=== PATIENT | male | born 1955 | race Caucasian/White ===

== ENCOUNTER 2016-11-25 18:12 | Inpatient (IN) ==
[2016-11-25 18:55] LABS: Basophils % 0.3 %; Eosinophils # 0.1 K/mcL (0.0-0.6); Eosinophils % 1.1 %; Hematocrit 35.4 % (37.5-50.1); Hemoglobin 12.3 g/dL (12.9-16.9); Immature Granulocytes % 0.1 % (0-4); Lymphocytes # 1.9 K/mcL (0.6-4.6); Lymphocytes % 25.9 %; Mean Corpuscular HGB Conc 34.7 g/dL (31.6-35.5); Mean Corpuscular Hemoglobin 29.6 pg (28.0-33.3); Mean Corpuscular Volume 85.3 fL (83.0-100.0); Mean Platelet Volume 9.4 fL (9.4-12.4); Monocytes # 0.8 K/mcL (0.0-1.3); Monocytes % 10.4 %; Neutrophils # 4.7 K/mcL (1.6-8.9); Platelet Count 310 K/mcL (140-400); Red Blood Count 4.15 M/mcL (4.19-5.50); Red Cell Distribution Width 12.6 % (11.5-14.5); Segmented Neutrophils % 62.2 %
[2016-11-25 19:12] LABS: Alanine Aminotransferase 52 Units/L (0-55); Albumin 4.4 g/dL (3.5-5.0); Albumin/Globulin Ratio 1.3 (1.1-2.2); Alkaline Phosphatase 68 Units/L (38-126); Aspartate Amino Transferase 28 Units/L (5-34); BUN/Creatinine Ratio 23 (6-26); Bilirubin,Direct 0.3 mg/dL (0.0-0.5); Bilirubin,Indirect 0.4 mg/dL (0.0-1.2); Bilirubin,Total 0.7 mg/dL (0.2-1.2); Blood Urea Nitrogen 23 mg/dL (8-26); Calcium 9.6 mg/dL (8.6-10.8); Carbon Dioxide 21 mEq/L (19-29); Chloride 112 mEq/L (98-109); Globulin 3.4 g/dL (2.4-3.5); Glucose 121 mg/dL (70-99); Lipase 609 Units/L (8-78); Osmolality,Calculated 303 (280-300); Potassium 3.5 mEq/L (3.5-4.5); Sodium 144 mEq/L (136-145); Total Protein 7.8 g/dL (6.0-8.3); eGFR For African Americans > 60 (> 60); eGFR For Non-African Americans > 60 (> 60)
[2016-11-25 19:13] LABS: Acetaminophen < 1.0 mcg/mL (10-30); Ethanol < 10 mg/dL (0-10); Salicylate < 5.0 mg/dL (15-30)
[2016-11-25 19:16] LABS: INR 1.1; Prothrombin Time 12.3 Seconds (9.4-12.1)
[2016-11-25 19:19] LABS: Activated Partial Thrombo Time 32.5 Seconds (26.0-36.0)
[2016-11-25] MEDS ORDERED: 0.9 % Sodium Chloride 1,000 ML IVC ONE (19:51)
--- NOTE | 2016-11-25 20:09 | Emergency Department Note ---
Disposition Clinical Impression: Drug abuse Pancreatitis Qualifiers: Chronicity: acute Pancreatitis type: unspecified pancreatitis type Acute pancreatitis complication: unspecified Qualified Code(s): K85.90 - Acute pancreatitis without necrosis or infection, unspecified Altered mental status, unspecified Qualifiers: Altered mental status type: delirium Qualified Code(s): R41.0 - Disorientation , unspecified Disposition: Admitted As Inpatient Condition: Fair Referrals: NONE,PCP [Primary Care Provider] - Forms: ED Satisfaction Letter, Work/School Release Time of Disposition: 22:30 General Adult HPI - General Chief complaint: ED Abdominal Pain Stated complaint: "my aneurysm is bursting again" Time Seen by Provider: 11/25/16 18:26 Source: patient Limitations: no limitations - History of Present Illness HPI Narrative: Mr. Taylor is a 61 y/o M who is a poor historian presents to the ED complaining of "his aneurysm rupturing". Patient states that he had pain left of his umbilicus that started today while walking. He describes the pain as feeling like his aneurysm is ruptured repeatedly. Patient then start telling stories about events in 1971. The patient avoid answering any of my questions regarding his abdominal pain. He is alert and oriented to place and time, but he does not answer any of my history and physical questions. However, the patient denies any fever, chest pain, shortness of breath, constipation, diarrhea, numbness and tingling, and any weaknesses. Pain Scale: 10 - Related Data Home Medications Medication Instructions Recorded Confirmed Aspirin 81 mg PO DAILY 02/25/15 11/03/15 Atorvastatin [Lipitor] 20 mg PO DAILY 02/25/15 11/03/15 Benztropine [Cogentin] 1 mg PO TID 02/25/15 11/03/15 Cholecalciferol (Vitamin D3) 1,000 unit PO DAILY 02/25/15 11/03/15 [Vitamin D3] Cyclobenzaprine HCl 5 mg PO BID 02/25/15 11/03/15 Docusate [Colace] 100 mg PO BID 02/25/15 11/03/15 Gabapentin [Neurontin] 800 mg PO TID 02/25/15 11/03/15 Levothyroxine [Synthroid] 50 mcg PO DAILY 02/25/15 11/03/15 [place] Carbonate 300 mg PO HS 02/25/15 11/03/15 OLANZapine [Zyprexa] 20 mg PO HS 02/25/15 11/03/15 Propranolol [Inderal] 20 mg PO BID 02/25/15 11/03/15 Carboxymethylcellulose Sodium 1 drop OP QID 11/02/15 11/03/15 [Refresh Celluvisc] Lisinopril-HCTZ 20-12.5 [Prinzide 2 tab PO DAILY 11/02/15 11/03/15 20-12.5] Omeprazole [PriLOSEC] 20 mg PO DAILY 11/02/15 11/03/15 Polyethylene Glycol 3350 [MiraLAX] 17 gm PO DAILY 11/02/15 11/03/15 Psyllium [Metamucil Fiber Singles 2 unit PO DAILY 11/02/15 11/02/15 Packet] Divalproex (12 HR) [Depakote (12 500 mg PO QAM 11/03/15 11/03/15 HR)] Divalproex (12 HR) [Depakote (12 750 mg PO QPM 11/03/15 11/03/15 HR)] Previous Rx's Medication Instructions Recorded Ciprofloxacin HCl [Cipro] 500 mg PO BID #14 tab 11/04/15 Nabumetone [Relafen] 500 mg PO BID tablet 11/04/15 metroNIDAZOLE [Flagyl] 500 mg PO TID #21 tablet 11/04/15 traMADol [Ultram] 100 mg PO TID tablet 11/04/15 Cyclobenzaprine [Flexeril] 10 mg PO TID PRN #10 tablet 01/01/16 Meloxicam [Mobic] 7.5 mg PO BID PRN #10 tablet 01/01/16 Diclofenac Sodium [Voltaren] 50 mg PO Q8HR #30 tablet. 03/27/16 Tramadol HCl [Ultram] 50 mg PO Q6HR PRN #20 tab 03/27/16 predniSONE [PredniSONE] 60 mg PO DAILY 5 Days tablet 03/27/16 Benzonatate [Tessalon] 100 mg PO TID PRN #15 capsule 04/14/16 Ciprofloxacin HCl [Cipro] 500 mg PO BID #20 tablet 09/04/16 metroNIDAZOLE [Flagyl] 500 mg PO TID #30 tablet 09/04/16 HYDROcodone/Acet 5/325 mg [[place] 1 tab PO Q6H PRN #6 tab 09/05/16 5-325 mg] Allergies Allergy/AdvReac Type Severity Reaction Status Date / Time No Known Allergies Allergy Verified 11/25/16 18:18 Constitutional: Denies: fever, chills, weakness Cardiovascular: Denies: chest pain, palpitations, dyspnea on exertion, edema, syncope Respiratory: Denies: cough, dyspnea, wheezes, hemoptysis, stridor Gastrointestinal: Reports: abdominal pain Genitourinary: Denies: urgency, dysuria, frequency, hematuria Musculoskeletal: Denies: back pain, neck pain, arthralgia, myalgia Neurological: Denies: headache, weakness, numbness, paresthesias, confusion, abnormal gait, vertigo Past Medical History - Past Medical History Medical history: Reports: aortic aneurysm, hepatitis, hyperlipidemia, hypertension, thyroid disease, other Surgical history: Reports: no surgical history Psychiatric history: Reports: schizophrenia, other - Social History Smoking Status: Current every day smoker Smokeless Tobacco Status: No Alcohol use: Reports: rarely Drug use: Reports: none Physical Exam - General Limitations: no limitations General appearance: alert, anxious - Head Head exam: atraumatic, normocephalic, normal inspection - Neck Neck exam: Present: normal inspection, full ROM, trachea midline - Chest Chest inspection: Present: normal inspection, symmetric chest wall rise - Respiratory Respiratory exam: Present: normal lung sounds bilaterally. Absent: respiratory distress, wheezes, stridor - Cardiovascular Cardiovascular exam: Present: regular rate, normal rhythm, normal heart sounds. Absent: rubs, gallop, clicks - Abdominal Exam Abdominal exam: Present: soft, Non-Tender, normal bowel sounds. Absent: distention, guarding, rebound, rigidity, pulsatile mass - Expanded Lower Extremity Exam Neurovascular/Tendon exam: Present: normal capillary refill. Absent: pulse deficit, motor deficit, sensory deficit - Back Exam Back exam: Present: normal inspection. Absent: tenderness, CVA tenderness (R), CVA tenderness (L), paraspinal tenderness, vertebral tenderness - Neurological Exam Neurological exam: Present: alert, oriented X3 Course - Consultations Consultation #1: Spoke with Dr. Dueñas. He accepts the patient. Time: 22:27 Vital Signs Temperature 98.4 F 11/25/16 18:14 Pulse Rate 96 11/25/16 18:14 Respiratory Rate 20 11/25/16 18:14 Blood Pressure 163/98 11/25/16 18:14 O2 Sat by Pulse Oximetry 98 11/25/16 18:14 Temperature 98.4 F 11/25/16 18:14 Pulse Rate 96 11/25/16 18:14 Respiratory Rate 20 11/25/16 18:14 Blood Pressure 163/98 11/25/16 18:14 O2 Sat by Pulse Oximetry 98 11/25/16 18:14 Oxygen Delivery Oxygen Delivery Room Air Medical Decision Making - MDM Narrative Medical decision making narrative: The patient is unable to answer my history and physical questions regarding his abdominal pain complaints continue to have conversations about events that occurred in 1971 and accidents that occur 3 to 5 years ago. Plan is to order a Psych clearance. CBC reviewed and showed low hemoglobin but it is unchanged from his baseline. CTA of abdomen, pelvis, and chest are pending. Labs reviewed and it showed elevated lipase. Plan to admit the patient for pancreatitis. Urine tox screen was positive for cocaine and marijuana. 22:27 - Spoke with Dr. Dueñas and he accepts the patient. - Lab Data Lab results reviewed: Yes I reviewed the patient's lab results. Result diagrams: 11/25/16 18:47 11/25/16 18:47 Lab Results 11/25/16 11/25/16 11/25/16 Range/Units 18:47 18:47 18:47 WBC 7.5 (4.3-11.1) K/mcL RBC 4.15 L (4.19-5.50) M/mcL Hgb 12.3 L (12.9-16.9) g/dL Hct 35.4 L (37.5-50.1) % MCV 85.3 (83.0-100.0) fL MCH 29.6 (28.0-33.3) pg MCHC 34.7 (31.6-35.5) g/dL RDW 12.6 (11.5-14.5) % Plt Count 310 (140-400) K/mcL MPV 9.4 (9.4-12.4) fL Immature Gran % 0.1 (0-4) % Seg Neutrophils % 62.2 % Lymphocytes % 25.9 % Monocytes % 10.4 % Eosinophils % 1.1 % Basophils % 0.3 % Neutrophils # 4.7 (1.6-8.9) K/mcL Lymphocytes # 1.9 (0.6-4.6) K/mcL Monocytes # 0.8 (0.0-1.3) K/mcL Eosinophils # 0.1 (0.0-0.6) K/mcL Basophils # 0.0 (0.0-0.2) K/mcL PT 12.3 H (9.4-12.1) Seconds INR 1.1 APTT 32.5 (26.0-36.0) Seconds Sodium 144 (136-145) mEq/L Potassium 3.5 (3.5-4.5) mEq/L Chloride 112 H (98-109) mEq/L Carbon Dioxide 21 (19-29) mEq/L BUN 23 (8-26) mg/dL Creatinine 1.02 (0.72-1.25) mg/dL Est GFR ( Amer) > 60 (> 60) Est GFR (Non-Af Amer) > 60 (> 60) BUN/Creatinine Ratio 23 (6-26) Glucose 121 H (70-99) mg/dL Calculated Osmolality 303 H (280-300) Calcium 9.6 (8.6-10.8) mg/dL Total Bilirubin 0.7 (0.2-1.2) mg/dL Direct Bilirubin 0.3 (0.0-0.5) mg/dL Indirect Bilirubin 0.4 (0.0-1.2) mg/dL AST 28 (5-34) Units/L ALT 52 (0-55) Units/L Alkaline Phosphatase 68 (38-126) Units/L Serum Total Protein 7.8 (6.0-8.3) g/dL Albumin 4.4 (3.5-5.0) g/dL Globulin 3.4 (2.4-3.5) g/dL Albumin/Globulin Ratio 1.3 (1.1-2.2) Lipase 609 H (8-78) Units/L Urine Color (Yellow) Urine Clarity (Clear) Urine pH (5.0-8.0) pH Units Ur Specific [place] (1.010-1.025) Urine Protein (Neg-Trace) mg/dL Urine Glucose (UA) (Normal) mg/dL Urine Ketones (Negative) mg/dL Urine Blood (Negative) Urine Nitrite (Negative) Urine Bilirubin (Negative) Urine Urobilinogen (Normal) mg/dL Ur Leukocyte Esterase (Negative) Ur Culture Indicated? (NO) Salicylates < 5.0 L (15-30) mg/dL Urine Opiates Screen (Tlewbw=106) ng/mL Acetaminophen < 1.0 L (10-30) mcg/mL Ur Barbiturates Screen (Yrnllx=375) ng/mL Ur Phencyclidine Scrn (Cutoff=25) ng/mL Ur Amphetamines Screen (Bwkrkq=9419) ng/mL U Benzodiazepines Scrn (Nnguda=796) ng/mL Urine Cocaine Screen (Cutoff= 300) ng/mL U Marijuana (THC) Screen (Cutoff = 50) ng/mL Ethyl Alcohol < 10 (0-10) mg/dL 11/25/16 11/25/16 Range/Units 21:20 21:20 WBC (4.3-11.1) K/mcL RBC (4.19-5.50) M/mcL Hgb (12.9-16.9) g/dL Hct (37.5-50.1) % MCV (83.0-100.0) fL MCH (28.0-33.3) pg MCHC (31.6-35.5) g/dL RDW (11.5-14.5) % Plt Count (140-400) K/mcL MPV (9.4-12.4) fL Immature Gran % (0-4) % Seg Neutrophils % % Lymphocytes % % Monocytes % % Eosinophils % % Basophils % % Neutrophils # (1.6-8.9) K/mcL Lymphocytes # (0.6-4.6) K/mcL Monocytes # (0.0-1.3) K/mcL Eosinophils # (0.0-0.6) K/mcL Basophils # (0.0-0.2) K/mcL PT (9.4-12.1) Seconds INR APTT (26.0-36.0) Seconds Sodium (136-145) mEq/L Potassium (3.5-4.5) mEq/L Chloride (98-109) mEq/L Carbon Dioxide (19-29) mEq/L BUN (8-26) mg/dL Creatinine (0.72-1.25) mg/dL Est GFR ( Amer) (> 60) Est GFR (Non-Af Amer) (> 60) BUN/Creatinine Ratio (6-26) Glucose (70-99) mg/dL Calculated Osmolality (280-300) Calcium (8.6-10.8) mg/dL Total Bilirubin (0.2-1.2) mg/dL Direct Bilirubin (0.0-0.5) mg/dL Indirect Bilirubin (0.0-1.2) mg/dL AST (5-34) Units/L ALT (0-55) Units/L Alkaline Phosphatase (38-126) Units/L Serum Total Protein (6.0-8.3) g/dL Albumin (3.5-5.0) g/dL Globulin (2.4-3.5) g/dL Albumin/Globulin Ratio (1.1-2.2) Lipase (8-78) Units/L Urine Color Yellow (Yellow) Urine Clarity Clear (Clear) Urine pH 7.0 (5.0-8.0) pH Units Ur Specific [place] > 1.030 H (1.010-1.025) Urine Protein Negative (Neg-Trace) mg/dL Urine Glucose (UA) Normal (Normal) mg/dL Urine Ketones Negative (Negative) mg/dL Urine Blood Negative (Negative) Urine Nitrite Negative (Negative) Urine Bilirubin Negative (Negative) Urine Urobilinogen Normal (Normal) mg/dL Ur Leukocyte Esterase Negative (Negative) Ur Culture Indicated? NO (NO) Salicylates (15-30) mg/dL Urine Opiates Screen Negative (Ivbunr=728) ng/mL Acetaminophen (10-30) mcg/mL Ur Barbiturates Screen Negative (Waqnki=065) ng/mL Ur Phencyclidine Scrn Negative (Cutoff=25) ng/mL Ur Amphetamines Screen Negative (Hyrasm=5442) ng/mL U Benzodiazepines Scrn Negative (Bbhwlc=518) ng/mL Urine Cocaine Screen Positive H (Cutoff= 300) ng/mL U Marijuana (THC) Screen Positive H (Cutoff = 50) ng/mL Ethyl Alcohol (0-10) mg/dL Attestation Statement - Attestation Attestation: I examined this patient and my medical decision-making was reviewed with the Resident Physician. I agree with the documented findings, disposition and treatment plan as described except to the extent set forth below. Patient to the emergency department stating he thinks his aneurysms ruptured. Patient continually talking about the aneurysm. He is talking about something in his head. Also requesting that we "check everything out this time including his heart." On examination the patient is anxious. Rambling. Not making sense. His abdomen is soft. His lungs are clear. Plan. Medical clearance and psych eval.
[2016-11-25 21:31] LABS: Bilirubin,Urine Negative (Negative); Blood,Urine Negative (Negative); Clarity,Urine Clear (Clear); Color,Urine Yellow (Yellow); Glucose,Urine (UA) Normal (Normal); Ketones,Urine Negative (Negative); Leukocyte Esterase,Urine Negative (Negative); Nitrite,Urine Negative (Negative); Protein,Urine Negative (Neg-Trace); Specific Gravity,Urine > 1.030 (1.010-1.025); Urobilinogen,Urine Normal (Normal)
[2016-11-25 21:36] LABS: Amphetamine Screen,Urine Negative ng/mL (Cutoff=1000); Barbiturate Screen,Urine Negative ng/mL (Cutoff=200); Benzodiazepines Screen,Urine Negative ng/mL (Cutoff=200); Cannabinoid Screen,Urine Positive ng/mL (Cutoff = 50); Cocaine Screen,Urine Positive ng/mL (Cutoff= 300); Opiate Screen,Urine Negative ng/mL (Cutoff=300); Phencyclidine Screen,Urine Negative ng/mL (Cutoff=25)
[2016-11-25 23:22] VITALS: BP 148/82
--- NOTE | 2016-11-26 00:27 | Internal Med History&Physical ---
Date of Encounter: 11/26/16 Time of Encounter: 00:27 Internal Medicine - H&P: HPI Chief complaint: "My aneurysm is rupturing" Admitted From: Home Plans for Post Hospital Care: Home History of present illness: Mr. Taylor is a 61 year old male with a PMH of AAA, hepatitis, cocaine abuse, and tobacco dependance presented c/o abd pain since yesterday. Pain is 10/10 severity, periumbilical, and feel like "my aneurysm ruptured repeatedly". He is alert and oriented to place and time, but he does not answer any of history and physical questions. In the ED, Urine tox screen was positive for cocaine and marijuana and lipase was elevated at 609 Past Med Surg Social Fam HX - Past Medical History Medical history: aortic aneurysm, hepatitis, hyperlipidemia, hypertension, thyroid disease, other Psychiatric history: schizophrenia, other - Past Surgical History Surgical History: no surgical history - Social History Smoking Status: Current every day smoker Packs per day: 1 Smokeless Tobacco Status: No Alcohol use: rarely Drug use: cocaine, marijuana, IV Drug Use Internal Medicine - H&P: Meds Aspirin 81 mg PO DAILY 02/25/15 [History] Atorvastatin [Lipitor] 20 mg PO DAILY 02/25/15 [History] Benztropine [Cogentin] 1 mg PO TID 02/25/15 [History] Cholecalciferol (Vitamin D3) [Vitamin D3] 1,000 unit PO DAILY 02/25/15 [History] Cyclobenzaprine HCl 5 mg PO BID 02/25/15 [History] Docusate [Colace] 100 mg PO BID 02/25/15 [History] Gabapentin [Neurontin] 800 mg PO TID 02/25/15 [History] Levothyroxine [Synthroid] 50 mcg PO DAILY 02/25/15 [History] [place] Carbonate 300 mg PO HS 02/25/15 [History] OLANZapine [Zyprexa] 20 mg PO HS 02/25/15 [History] Propranolol [Inderal] 20 mg PO BID 02/25/15 [History] Carboxymethylcellulose Sodium [Refresh Celluvisc] 1 drop OP QID 11/02/15 [ History] Lisinopril-HCTZ 20-12.5 [Prinzide 20-12.5] 2 tab PO DAILY 11/02/15 [History] Omeprazole [PriLOSEC] 20 mg PO DAILY 11/02/15 [History] Polyethylene Glycol 3350 [MiraLAX] 17 gm PO DAILY 11/02/15 [History] Psyllium [Metamucil Fiber Singles Packet] 2 unit PO DAILY 11/02/15 [History] Divalproex (12 HR) [Depakote (12 HR)] 500 mg PO QAM 11/03/15 [History] Divalproex (12 HR) [Depakote (12 HR)] 750 mg PO QPM 11/03/15 [History] Ciprofloxacin HCl [Cipro] 500 mg PO BID #14 tab 11/04/15 [Rx] Nabumetone [Relafen] 500 mg PO BID tablet 11/04/15 [Rx] metroNIDAZOLE [Flagyl] 500 mg PO TID #21 tablet 11/04/15 [Rx] traMADol [Ultram] 100 mg PO TID tablet 11/04/15 [Rx] Cyclobenzaprine [Flexeril] 10 mg PO TID PRN #10 tablet 01/01/16 [Rx] Meloxicam [Mobic] 7.5 mg PO BID PRN #10 tablet 01/01/16 [Rx] Diclofenac Sodium [Voltaren] 50 mg PO Q8HR #30 tablet. 03/27/16 [Rx] Tramadol HCl [Ultram] 50 mg PO Q6HR PRN #20 tab 03/27/16 [Rx] predniSONE [PredniSONE] 60 mg PO DAILY 5 Days tablet 03/27/16 [Rx] Benzonatate [Tessalon] 100 mg PO TID PRN #15 capsule 04/14/16 [Rx] Ciprofloxacin HCl [Cipro] 500 mg PO BID #20 tablet 09/04/16 [Rx] metroNIDAZOLE [Flagyl] 500 mg PO TID #30 tablet 09/04/16 [Rx] HYDROcodone/Acet 5/325 mg [[place] 5-325 mg] 1 tab PO Q6H PRN #6 tab 09/05/16 [Rx] 3 Allergy/AdvReac Type Severity Reaction Status Date / Time No Known Allergies Allergy Verified 11/25/16 18:18 All Systems PM: A 10-system review of systems was performed and is negative for pertinent findings except as documented above in the HPI. - Constitutional Vitals: Temp Pulse Resp BP Pulse Ox 98.4 F 88 17 148/82 95 11/25/16 18:14 11/25/16 23:08 11/25/16 23:08 11/25/16 23:08 11/25/16 23:08 Internal Med - H&P Results - Labs CBC & Chem 7: 11/25/16 18:47 11/25/16 18:47
[2016-11-26] MEDS ORDERED: Ondansetron 4 MG/2 ML VIAL IVP PRN (00:52)
[2016-11-26] MEDS ORDERED: Naloxone 0.4 MG/ML INJ IVP PRN ×2 (00:52→00:54)
[2016-11-26] MEDS ORDERED: Ketorolac 30 MG/ML VIAL IVP PRN (00:54)
[2016-11-26] MEDS ORDERED: 0.9 % Sodium Chloride 1,000 ML IVC SCH (01:00)
--- NOTE | 2016-11-26 01:08 | Internal Med History&Physical ---
Date of Encounter: 11/26/16 Time of Encounter: 00:28 Assessment and Plan (1) Pancreatitis Current visit: Yes Status: Acute Lipase was elevated at 609 CT abd/plv revealed Cholelithiasis. There are layering tiny gallstones in the gallbladder lumen. There is no gallbladder wall thickening, pericholecystic fluid, or biliary duct dilatation. Possible gallstone induced pancreatitis Abd U/S pending Mophine prn pain NPO diet IVF at 250cc/hr Qualifiers: Chronicity: acute Pancreatitis type: unspecified pancreatitis type Acute pancreatitis complication: unspecified Qualified Code(s): K85.90 - Acute pancreatitis without necrosis or infection, unspecified (2) Acute encephalopathy Current visit: Yes Status: Acute He is alert and oriented to place and time, but appears very agitated with flight of ideas, loose associations, and pressured speech. Likely related to recent cocaine use/ ETOH use Hospital Security present during time of exam CT brain pending (3) AAA (abdominal aortic aneurysm) Current visit: Yes Status: Acute CTA abd revealed stable fusiform ectasia of the infrarenal abdominal aorta measuring 2.6 cm in maximal diameter. Recommend follow up every 5 years and tobacco cessation Qualifiers: Presence of rupture: without rupture Qualified Code(s): I71.4 - Abdominal aortic aneurysm, without rupture (4) Hepatitis Current visit: Yes Status: Chronic Chronic Hep C Continue to monitor (5) Essential hypertension Current visit: No Status: Acute Continue home meds (6) Polysubstance abuse Current visit: No Status: Acute Urine tox screen was positive for cocaine and marijuana (7) Tobacco abuse Current visit: No Status: Acute Discuss tobacco cessation Patient refused Nicotine patch (8) Schizophrenia Current visit: No Status: Acute Patient very agitated, flight of ideas, loose associations, and pressured speech likely due to recent cocaine/ ETOH use. Consider inpatient vs. outpatient psych follow up if patient's mental status is not improving Qualifiers: Schizophrenia type: unspecified Qualified Code(s): F20.9 - Schizophrenia, unspecified (9) DVT prophylaxis Current visit: No Status: Acute Heparin subQ TID Internal Medicine - H&P: HPI Chief complaint: "My aneurysm is rupturing" Admitted From: Home Plans for Post Hospital Care: Home History of present illness: Mr. Taylor is a 61 year old male with a PMH of AAA, hepatitis C, cocaine abuse, and tobacco dependance that presented c/o abd pain since yesterday and sore throat for 2 weeks. Abd pain is 10/10 severity, periumbilical, and feels like "my aneurysm is rupturing". He is alert and oriented, but is very hard to keep on track. He admits to drinking alcohol last night but denies heavy alcohol dependence or previous alcohol withdrawal seizures. He reports severe headache and history of "brain abscess". He reports sore throat for the past 2 weeks and denies fever, chills, fatigue, CP, SOB, N/V/D or leg edema. In the ED, Urine tox screen was positive for cocaine and marijuana, and ETOH level < 10. CTA was negative for rupturing aneurysm and lipase was elevated at 609 Past Med Surg Social Fam HX - Past Medical History Medical history: aortic aneurysm, hepatitis (Hep C), hyperlipidemia, hypertension, thyroid disease, other Psychiatric history: anxiety, schizophrenia, other - Past Surgical History Surgical History: no surgical history - Social History Smoking Status: Current every day smoker Packs per day: 1 Smokeless Tobacco Status: No Alcohol use: rarely Drug use: cocaine, marijuana Activity Level: Independent ambulation Recent Out of Country Travel Within the Last 8 Weeks: No - Family History Mother Hx Family Cardiac Disorders: Yes (CHF) Father Hx Family Cardiac Disorders: Yes (CAD, CABG) Internal Medicine - H&P: Meds Aspirin 81 mg PO DAILY 02/25/15 [History] Atorvastatin [Lipitor] 20 mg PO DAILY 02/25/15 [History] Benztropine [Cogentin] 1 mg PO TID 02/25/15 [History] Cholecalciferol (Vitamin D3) [Vitamin D3] 1,000 unit PO DAILY 02/25/15 [History] Cyclobenzaprine HCl 5 mg PO BID 02/25/15 [History] Docusate [Colace] 100 mg PO BID 02/25/15 [History] Gabapentin [Neurontin] 800 mg PO TID 02/25/15 [History] Levothyroxine [Synthroid] 50 mcg PO DAILY 02/25/15 [History] [place] Carbonate 300 mg PO HS 02/25/15 [History] OLANZapine [Zyprexa] 20 mg PO HS 02/25/15 [History] Propranolol [Inderal] 20 mg PO BID 02/25/15 [History] Carboxymethylcellulose Sodium [Refresh Celluvisc] 1 drop OP QID 11/02/15 [ History] Lisinopril-HCTZ 20-12.5 [Prinzide 20-12.5] 2 tab PO DAILY 11/02/15 [History] Omeprazole [PriLOSEC] 20 mg PO DAILY 11/02/15 [History] Polyethylene Glycol 3350 [MiraLAX] 17 gm PO DAILY 11/02/15 [History] Psyllium [Metamucil Fiber Singles Packet] 2 unit PO DAILY 11/02/15 [History] Divalproex (12 HR) [Depakote (12 HR)] 500 mg PO QAM 11/03/15 [History] Divalproex (12 HR) [Depakote (12 HR)] 750 mg PO QPM 11/03/15 [History] Ciprofloxacin HCl [Cipro] 500 mg PO BID #14 tab 11/04/15 [Rx] Nabumetone [Relafen] 500 mg PO BID tablet 11/04/15 [Rx] metroNIDAZOLE [Flagyl] 500 mg PO TID #21 tablet 11/04/15 [Rx] traMADol [Ultram] 100 mg PO TID tablet 11/04/15 [Rx] Cyclobenzaprine [Flexeril] 10 mg PO TID PRN #10 tablet 01/01/16 [Rx] Meloxicam [Mobic] 7.5 mg PO BID PRN #10 tablet 01/01/16 [Rx] Diclofenac Sodium [Voltaren] 50 mg PO Q8HR #30 tablet. 03/27/16 [Rx] Tramadol HCl [Ultram] 50 mg PO Q6HR PRN #20 tab 03/27/16 [Rx] predniSONE [PredniSONE] 60 mg PO DAILY 5 Days tablet 03/27/16 [Rx] Benzonatate [Tessalon] 100 mg PO TID PRN #15 capsule 04/14/16 [Rx] Ciprofloxacin HCl [Cipro] 500 mg PO BID #20 tablet 09/04/16 [Rx] metroNIDAZOLE [Flagyl] 500 mg PO TID #30 tablet 09/04/16 [Rx] HYDROcodone/Acet 5/325 mg [[place] 5-325 mg] 1 tab PO Q6H PRN #6 tab 09/05/16 [Rx] 3 Allergy/AdvReac Type Severity Reaction Status Date / Time No Known Allergies Allergy Verified 11/25/16 18:18 All Systems PM: A 10-system review of systems was performed and is negative for pertinent findings except as documented above in the HPI. - Constitutional Constitutional: no chills, no fatigue, no fever(s), no weakness - EENT Eyes: no change in vision Nose, mouth and throat: nasal congestion, post-nasal drip, sinus pressure, sore throat, no epistaxis - Cardiovascular Cardiovascular ROS IM: no chest pain, no dyspnea, no palpitations - Respiratory Respiratory: no dyspnea, no wheezing, no chest congestion, no excessive phlegm production - Gastrointestinal Gastrointestinal: abdominal pain, nausea, no diarrhea, no heartburn, no vomiting - Genitourinary Genitourinary ROS male: no flank pain, no urinary frequency, no urinary urgency - Musculoskeletal Musculoskeletal ROS IM: back pain, no limited range of motion, no muscle weakness, no numbness, no tingling - Integumentary Integumentary IM: no erythema, no new lesions - Neurological Neurological ROS: confusion, no numbness, no radicular pain, no weakness - Psychiatric Psychiatric: anxiety, behavioral changes, irritability, no paranoia, no suicidal ideation - Endocrine Endocrine IM: no polydipsia, no polyphagia, no polyuria - Constitutional Vitals: Temp Pulse Resp BP Pulse Ox 98.4 F 88 17 148/82 95 11/25/16 18:14 11/25/16 23:08 11/25/16 23:08 11/25/16 23:08 11/25/16 23:08 General appearance: Present: cooperative, mild distress, A&O X 3. Absent: pleasant - Head Head exam: Present: atraumatic, normal inspection, normocephalic - Eye Eye exam: Present: EOMI, normal appearance, PERRL - ENT ENT exam: Present: mucous membranes moist - Expanded ENT Exam Throat exam: Present: post pharyngeal erythema - Neck Neck exam general surgery: Present: normal inspection, supple. Absent: tenderness - Respiratory Respiratory exam: Present: CTAB. Absent: accessory muscle use, decreased breath sounds, respiratory distress, wheezes - Cardiovascular Cardiovascular exam: Present: RRR, +S1, +S2 - GI/Abdominal GI/Abdominal exam: Present: guarding (RUQ), hernia (small periumbilical), normal bowel sounds, soft, tenderness. Absent: distended, mass - Expanded GI/Abdominal Exam GI/Abdominal exam expanded: Present: Jolley's sign - Extremities Exam Extremities exam: Present: normal capillary refill, normal inspection, warm, radial pulses palpable and symmetrical. Absent: joint swelling, pedal edema, tenderness - Back Exam Back exam: Present: normal inspection. Absent: paraspinal tenderness, tenderness, vertebral tenderness - Neurological Exam Neurological exam: Present: alert, oriented X3, no focal deficits. Absent: speech deficit - Psychiatric Psychiatric exam: Present: agitated, anxious. Absent: homicidal ideation, suicidal ideation - Expanded Psychiatric Exam Focused psych exam: Present: flight of ideas, loose associations, pressured speech. Absent: mute - Skin Skin exam: Present: dry, intact, normal color, warm Internal Med - H&P Results - Labs CBC & Chem 7: 11/25/16 18:47 11/25/16 18:47
[2016-11-26] MEDS ORDERED: *HR* Morphine 2 MG/ML SYRINGE IVP PRN ×2 (02:11→02:29)
--- NOTE | 2016-11-26 02:16 | Event Note ---
Date of Encounter: 11/26/16 Time of Encounter: 02:14 Patient seen and examined with medical clinic manager. Acute pancreatitis. To clear. He drinks alcohol rarely last drink yesterday. Maybe related to cocaine abuse. Keep NPO hydrate. Pain control morphine. He has been complaining of severe headache will CT scan of the head to rule out any believe. Those tiny stones in the gallbladder on CT scan. However total bilirubin alkaline phosphatase and transaminases normal socialist likely gallstone induced pancreatitis.
--- NOTE | 2016-11-26 04:13 | Discharge Summary ---
Date of Encounter: 11/26/16 Time of Encounter: 04:08 - Discharge Medications Home Medications: Aspirin 81 mg PO DAILY 02/25/15 [History] Atorvastatin [Lipitor] 20 mg PO DAILY 02/25/15 [History] Benztropine [Cogentin] 1 mg PO TID 02/25/15 [History] Cholecalciferol (Vitamin D3) [Vitamin D3] 1,000 unit PO DAILY 02/25/15 [History] Cyclobenzaprine HCl 5 mg PO BID 02/25/15 [History] Docusate [Colace] 100 mg PO BID 02/25/15 [History] Gabapentin [Neurontin] 800 mg PO TID 02/25/15 [History] Levothyroxine [Synthroid] 50 mcg PO DAILY 02/25/15 [History] [place] Carbonate 300 mg PO HS 02/25/15 [History] OLANZapine [Zyprexa] 20 mg PO HS 02/25/15 [History] Propranolol [Inderal] 20 mg PO BID 02/25/15 [History] Carboxymethylcellulose Sodium [Refresh Celluvisc] 1 drop OP QID 11/02/15 [ History] Lisinopril-HCTZ 20-12.5 [Prinzide 20-12.5] 2 tab PO DAILY 11/02/15 [History] Omeprazole [PriLOSEC] 20 mg PO DAILY 11/02/15 [History] Polyethylene Glycol 3350 [MiraLAX] 17 gm PO DAILY 11/02/15 [History] Psyllium [Metamucil Fiber Singles Packet] 2 unit PO DAILY 11/02/15 [History] Divalproex (12 HR) [Depakote (12 HR)] 500 mg PO QAM 11/03/15 [History] Divalproex (12 HR) [Depakote (12 HR)] 750 mg PO QPM 11/03/15 [History] Ciprofloxacin HCl [Cipro] 500 mg PO BID #14 tab 11/04/15 [Rx] Nabumetone [Relafen] 500 mg PO BID tablet 11/04/15 [Rx] metroNIDAZOLE [Flagyl] 500 mg PO TID #21 tablet 11/04/15 [Rx] traMADol [Ultram] 100 mg PO TID tablet 11/04/15 [Rx] Cyclobenzaprine [Flexeril] 10 mg PO TID PRN #10 tablet 01/01/16 [Rx] Meloxicam [Mobic] 7.5 mg PO BID PRN #10 tablet 01/01/16 [Rx] Diclofenac Sodium [Voltaren] 50 mg PO Q8HR #30 tablet. 03/27/16 [Rx] Tramadol HCl [Ultram] 50 mg PO Q6HR PRN #20 tab 03/27/16 [Rx] predniSONE [PredniSONE] 60 mg PO DAILY 5 Days tablet 03/27/16 [Rx] Benzonatate [Tessalon] 100 mg PO TID PRN #15 capsule 04/14/16 [Rx] Ciprofloxacin HCl [Cipro] 500 mg PO BID #20 tablet 09/04/16 [Rx] metroNIDAZOLE [Flagyl] 500 mg PO TID #30 tablet 09/04/16 [Rx] HYDROcodone/Acet 5/325 mg [[place] 5-325 mg] 1 tab PO Q6H PRN #6 tab 09/05/16 [Rx] Allergies/Adverse Reactions: 3 Allergy/AdvReac Type Severity Reaction Status Date / Time No Known Allergies Allergy Verified 11/25/16 18:18 Procedures/tests Complete & Pending: Procedures Performed prior 72 hours Category Date Time Status Head CT without Contrast [CT head/brain wo con] [CT] Cat Scan 11/26/16 00:50 Completed Stat US gall bladder [US] Routine Exams 11/26/16 01:16 Ordered Date of admission: 11/25/16 22:31 Primary care physician: PCP NONE Consults: 11/25/16 23:33 Consult to Pastoral Services [CONS] Routine Comment: - Patient Status Disposition: Transfer Intermediate Care Fac Condition: Critical Overall status at discharge: patient is not back to baseline - Discharge Instructions Follow Up With: NONE,PCP [Primary Care Provider] - Interval History: Patient is a 61-year-old male who presented the hospital with acute pancreatitis , was found to have on CT scan of the brain performed after he started complaining of severe headache subdural hematoma. I discussed the case with radiologist. Patient has 2 to 3 mm subdural hematoma in the right frontal lobe with no evidence of midline shift. Case discussed with [facility] and he will be transferred their due to availability of neurosurgery service. All antiplatelet anticlotting medications were discontinued. Patient has not received any of those other facility. He is an aspirin home but no other antiplatelet or anticoagulants. Etiology yet to be determined he takes cocaine by snorting and injection and occasional alcohol. traumatic is a possibility versus spontaneous..etc. further workup will be performed at [facility] Hospital course: Mr. Taylor is a 61 year old male - Time Spent with Patient Total time spent providing and/or coordinating discharge services: - Constitutional Vitals: Temp Pulse Resp BP Pulse Ox 98.4 F 88 17 148/82 95 11/25/16 18:14 11/25/16 23:08 11/25/16 23:08 11/25/16 23:08 11/25/16 23:08 General appearance: Present: cooperative, mild distress, A&O X 3. Absent: pleasant Exam: Gen.: patient is alert oriented times 3 cardiac: normal S1 S2 no additional sounds or murmurs chest: no active wheezing or bronchial breathing abdomen soft tender, normal bowel sounds lower extremity no swelling. Neuro: no new focal deficits
[2016-11-26 05:13] LABS: Basophils % 0.3 %; Eosinophils # 0.1 K/mcL (0.0-0.6); Eosinophils % 1.6 %; Hematocrit 34.3 % (37.5-50.1); Hemoglobin 11.7 g/dL (12.9-16.9); Immature Granulocytes % 0.3 % (0-4); Lymphocytes # 1.8 K/mcL (0.6-4.6); Lymphocytes % 23.1 %; Mean Corpuscular HGB Conc 34.1 g/dL (31.6-35.5); Mean Corpuscular Hemoglobin 29.7 pg (28.0-33.3); Mean Corpuscular Volume 87.1 fL (83.0-100.0); Mean Platelet Volume 9.7 fL (9.4-12.4); Monocytes # 0.8 K/mcL (0.0-1.3); Monocytes % 10.9 %; Neutrophils # 4.9 K/mcL (1.6-8.9); Platelet Count 274 K/mcL (140-400); Red Blood Count 3.94 M/mcL (4.19-5.50); Red Cell Distribution Width 12.6 % (11.5-14.5); Segmented Neutrophils % 63.8 %
[2016-11-26 05:28] LABS: BUN/Creatinine Ratio 21 (6-26); Blood Urea Nitrogen 17 mg/dL (8-26); Calcium 9.1 mg/dL (8.6-10.8); Carbon Dioxide 24 mEq/L (19-29); Chloride 111 mEq/L (98-109); Glucose 84 mg/dL (70-99); Lipase 66 Units/L (8-78); Osmolality,Calculated 295 (280-300); Potassium 3.5 mEq/L (3.5-4.5); Sodium 142 mEq/L (136-145); eGFR For African Americans > 60 (> 60); eGFR For Non-African Americans > 60 (> 60)
[2016-11-26 05:31] LABS: Albumin/Globulin Ratio 1.3 (1.1-2.2); Bilirubin,Direct 0.3 mg/dL (0.0-0.5); Bilirubin,Indirect 0.4 mg/dL (0.0-1.2); Bilirubin,Total 0.7 mg/dL (0.2-1.2)
[2016-11-26] MEDS ORDERED: *HR* Heparin 5,000 UNIT/ML VIAL SQ SCH (06:00)
[2016-11-26] MEDS ORDERED: Famotidine 20 MG/2 ML VIAL IVP SCH (06:00)
[2016-11-26] MEDS ORDERED: Pantoprazole 40 MG VIAL IVP SCH (09:00)
== END 2016-11-26 05:30 | disposition other institution (70) | DRG 438 ==
LOC: EMEROO 18:12 → 2NENU 18:12
PROVIDERS: ADMIT Family Medicine; ATTEND Internal Medicine